=== PATIENT | female | born 1995 | race Hispanic/Latino ===

== ENCOUNTER 2019-04-16 19:58 | Emergency (ER) | payer BC ==
--- NOTE | 2019-04-16 20:20 | EDM.PDOC ---
ED HPI GENERAL MEDICAL PROBLEM - General Chief Complaint: Genitourinary Problem Stated Complaint: POSSIBLE BLADDER INFECTION Time Seen by Provider: 04/16/19 20:11 - History of Present Illness INITIAL COMMENTS - FREE TEXT/NARRATIVE: HISTORY AND PHYSICAL: History of present illness: Patient is a healthy 23-year-old female who is 16 weeks and presents with urinary frequency urgency small volumes and dysuria but no hematuria. She says the symptoms started recently and she has not had any vaginal bleeding. She has no abdominal pain and no flank pain no vomiting no fevers and no diarrhea. She says that she has been feeling the baby move and she is not concerned about her . She is following with [facility] and Dr. Doll. She did not inform the clinic that she was having these issues. She is pushing hydration and has no chest pain or shortness of breath and is eating normally. Review of systems: As per history of present illness and below otherwise all systems reviewed and negative. Past medical history: As per history of present illness and as reviewed below otherwise noncontributory. Surgical history: As per history of present illness and as reviewed below otherwise noncontributory. Social history: No reported history of drug or alcohol abuse. Family history: As per history of present illness and as reviewed below otherwise noncontributory. Physical exam: General: Well-developed well-nourished female who is nontoxic and vital signs are noted by me HEENT: Atraumatic, normocephalic, pupils reactive, negative for conjunctival pallor or scleral icterus, mucous membranes moist, throat clear, neck supple, nontender, trachea midline. Lungs: Clear to auscultation, breath sounds equal bilaterally, chest nontender. Heart: S1S2, regular, rate and rhythm no overt murmurs Abdomen: Soft, nondistended, nontender. Uterus is gravid with the fundus below the umbilicus without tenderness negative for masses or hepatosplenomegaly. Negative for costovertebral tenderness. Pelvis: Stable nontender. Genitourinary: Deferred. Rectal: Deferred. Extremities: Atraumatic, negative for cords or calf pain. Neurovascular unremarkable. Neuro: Awake, alert, oriented. Cranial nerves II through XII unremarkable. Cerebellum unremarkable. Motor and sensory unremarkable throughout. Exam nonfocal. Diagnostics: UA with reflex, wet prep for trichomoniasis/BV/comfort Therapeutics: [] 2048: Case was discussed with Dr. Melgar; she would not like to give the patient Pyridium if the UA is negative and she is aware that a urine culture will be sent. She would like us to swab the patient for bacterial vaginosis and I will send that test off with the patient self swabbing. Patient and at bedside are aware of this Patient is aware of testing results and that at this point I do not have anything treatable for her symptoms and she like to follow-up with her provider in the clinic. I have advised her to continue to monitor what she is feeling push hydration and reasons to return to the ED Impression: Dysuria stable Second trimester stable Definitive disposition and diagnosis as appropriate pending reevaluation and review of above. Vaginal Pain Score (Numeric/FACES): 2 - Related Data Allergies Allergy/AdvReac Type Severity Reaction Status Date / Time ibuprofen Allergy Hives Verified 04/16/19 20:07 Penicillins Allergy Hives Verified 04/16/19 20:07 Home Meds: Home Meds Pnv No.95/Ferrous Fum/Folic AC [ Multivitamin Tablet] 1 tab PO DAILY [History] hydrOXYzine pamoate [Vistaril] 50 mg PO BEDTIME 04/16/19 [History] Social & Family History - Tobacco Use Smoking Status *Q: Never Smoker Second Hand Smoke Exposure: No - Caffeine Use Caffeine Use: Reports: None - Recreational Drug Use Recreational Drug Use: No ED ROS GENERAL - Review of Systems Review Of Systems: Comprehensive ROS is negative, except as noted in HPI. ED EXAM, GENERAL - Physical Exam Exam: See Below (See dictation) Course - Vital Signs Last Recorded V/S: Last Vital Signs Temp 37.1 C 04/16/19 19:59 Pulse 82 04/16/19 19:59 Resp 14 04/16/19 19:59 BP 115/76 04/16/19 19:59 Pulse Ox 98 04/16/19 19:59 - Orders/Labs/Meds Orders: Active Orders 24 hr Category Date Time Status CULTURE URINE [RM] Stat Lab 04/16/19 20:05 Received Labs: Laboratory Tests 04/16/19 04/16/19 Range/Units 20:05 21:00 Urine Color YELLOW Urine Appearance SLT CLOUDY Urine pH 7.0 (5.0-8.0) Ur Specific [place] 1.010 (1.001-1.035) Urine Protein NEGATIVE (NEGATIVE) mg/dL Urine Glucose (UA) NEGATIVE (NEGATIVE) mg/dL Urine Ketones NEGATIVE (NEGATIVE) mg/dL Urine Occult Blood NEGATIVE (NEGATIVE) Urine Nitrite NEGATIVE (NEGATIVE) Urine Bilirubin NEGATIVE (NEGATIVE) Urine Urobilinogen 0.2 (<2.0) EU/dL Ur Leukocyte Esterase TRACE H (NEGATIVE) Urine RBC 0-1 (0-2/HPF) Urine WBC 0-1 (0-5/HPF) Ur Epithelial Cells FEW (NONE-FEW) Urine Bacteria RARE (NEGATIVE) Comfort species DNA NEGATIVE (NEGATIVE) Gardnerella DNA Probe NEGATIVE (NEGATIVE) Trichomonas DNA Probe NEGATIVE (NEGATIVE) Departure - Departure Time of Disposition: 21:51 Disposition: Home, Self-Care 01 Condition: Good Clinical Impression: Second trimester , Dysuria - Discharge Information Referrals: PCP,None [Primary Care Provider] - Forms: ED Department Discharge Additional Instructions: The following information is given to patients seen in the emergency department who are being discharged to home. This information is to outline your options for follow-up care. We provide all patients seen in our emergency department with a follow-up referral. The need for follow-up, as well as the timing and circumstances, are variable depending upon the specifics of your emergency department visit. If you don't have a primary care physician on staff, we will provide you with a referral. We always advise you to contact your personal physician following an emergency department visit to inform them of the circumstance of the visit and for follow-up with them and/or the need for any referrals to a consulting specialist. The emergency department will also refer you to a specialist when appropriate. This referral assures that you have the opportunity for followup care with a specialist. All of these measure are taken in an effort to provide you with optimal care, which includes your followup. Under all circumstances we always encourage you to contact your private physician who remains a resource for coordinating your care. When calling for followup care, please make the office aware that this follow-up is from your recent emergency room visit. If for any reason you are refused follow-up, please contact the [facility] emergency department at and ask to speak to the emergency department charge nurse. [facility] [place] [phone] Push hydration and call and inform your provider on Friday morning of today's ER visit and schedule follow-up. Sepsis Event Note - Evaluation Sepsis Screening Result: No Definite Risk - Focused Exam Vital Signs: Vital Signs Temp Pulse Resp BP Pulse Ox 04/16/19 19:59 37.1 C 82 14 115/76 98 Date Exam was Performed: 04/16/19 Time Exam was Performed: 21:51 - My Orders Last 24 Hours: My Active Orders 04/16/19 20:05 CULTURE URINE [RM] Stat - Assessment/Plan Last 24 Hours: My Active Orders 04/16/19 20:05 CULTURE URINE [RM] Stat
== END 2019-04-16 22:07 | disposition home or self-care (01) ==
LOC: MW.ED 19:58
DX: O99.89 Other specified diseases and conditions complicating pregnancy, childbirth and the puerperium (principal); R30.0 Dysuria; Z3A.16 16 weeks gestation of pregnancy; Z88.0 Allergy status to penicillin; Z88.6 Allergy status to analgesic agent
CPT/HCPCS: 81001; 87086; 87480; 87510; 87660; 99283

== ENCOUNTER 2019-09-10 02:58 | Inpatient (IN) | payer MEDICAID ==
[2019-09-10] MEDS ORDERED: Misoprostol 25 MCG (1/4 of 100 MCG) Tab VAG PRN (03:06)
[2019-09-10] MEDS ORDERED: Terbutaline 1 MG/ML SDV SUBCUT PRN (03:06)
[2019-09-10] MEDS ORDERED: Misoprostol 200 MCG Tab PO PRN (03:11)
[2019-09-10] MEDS ORDERED: Methylergonovine 0.2 MG/1 ML Amp IM PRN (03:11)
[2019-09-10] MEDS ORDERED: Sodium Chloride 0.9% 10 ML SDV IV PRN (03:11)
[2019-09-10] MEDS ORDERED: Butorphanol 1 MG/ML SDV IVPUSH PRN (03:11)
[2019-09-10] MEDS ORDERED: Tranexamic Acid 1,000 MG in Sodium Chloride 0.9% 100 ML IV PRN (03:11)
[2019-09-10] MEDS ORDERED: Water For Irrigation,Sterile 1,000 ML Container IRR PRN (03:11)
[2019-09-10] MEDS ORDERED: Sodium Chloride 0.9% 10 ML Syringe FLUSH PRN (03:11)
[2019-09-10] MEDS ORDERED: Carboprost Tromethamine 250 MCG/1 ML Amp IM PRN (03:11)
[2019-09-10] MEDS ORDERED: Nalbuphine 10 MG/1 ML Vial IVPUSH PRN (03:11)
[2019-09-10] MEDS ORDERED: Sodium Chloride 0.9% 2.5 ML Syringe FLUSH PRN (03:11)
[2019-09-10] MEDS ORDERED: Lidocaine 1% 50 ML MDV INJECT PRN (03:11)
[2019-09-10] MEDS ORDERED: Oxytocin/0.9 % Sodium Chloride 30 UNIT/500 ML BAG IV SCH ×2 (03:15)
[2019-09-10] MEDS ORDERED: Lactated Ringers 1,000 ML IV SCH (03:15)
[2019-09-10] MEDS: Misoprostol 25 MCG (1/4 of 100 MCG) Tab VAG PRN ×2 (04:41→08:30)
[2019-09-10] MEDS ORDERED: Witch Hazel Medicated Pads 40/Jar TOP PRN (13:08)
[2019-09-10] MEDS ORDERED: Acetaminophen 500 MG Tab PO PRN (13:08)
[2019-09-10] MEDS ORDERED: Docusate Sodium 100 MG Cap PO PRN (13:08)
[2019-09-10] MEDS ORDERED: Ibuprofen 400 MG Tab PO PRN (13:08)
[2019-09-10] MEDS ORDERED: Benzocaine/Menthol 20%-0.5% Spray 78 GM Cannister TOP PRN (13:08)
[2019-09-10] MEDS ORDERED: Bisacodyl 10 MG Supp RECTAL PRN (13:08)
[2019-09-10] MEDS ORDERED: Lanolin 100% Cream 7 GM Tube TOP PRN (13:08)
[2019-09-10] MEDS: Acetaminophen 500 MG Tab PO PRN (17:44)
--- NOTE | 2019-09-10 17:55 | OR ---
SURGEON: Luis Doll MD DATE OF PROCEDURE: 09/10/2019 INDICATION FOR PROCEDURE: A 24-year-old, G7, P 1-1-4-2, at 37 weeks and 0 days presenting for of labor for preeclampsia without severe features. The patient noted to have mildly elevated blood pressures in the office, 130s over 90s, with elevated protein-creatinine ratio of 0.3. She was asymptomatic and had normal lab. Discussed options for induction of labor due to preeclampsia or close monitoring with two times weekly NST and BPP. The patient desires for induction of labor. Is aware of slightly increased risk of respiratory distress at early term. The patient received two doses of Cytotec and began to have regular contractions. She progressed quickly to fully dilated and +1 station with bulging membranes. Category 1 tracing. She was GBS unknown and did not receive antibiotics for prophylaxis. She had AROM with clear fluid. She also had small amount of dark vaginal bleeding with clots. She then started feeling pressure and began pushing with contractions. PREOPERATIVE DIAGNOSES: 1. Rose intrauterine at 37 weeks and 0 days. 2. Preeclampsia without severe features. 3. Marginal placental abruption. POSTOPERATIVE DIAGNOSES: 1. Rose intrauterine at 37 weeks and 0 days. 2. Preeclampsia without severe features. 3. Marginal placental abruption. PROCEDURE PERFORMED: Normal spontaneous vaginal delivery. ANESTHESIA: None. FINDINGS: Viable male infant. scores were pending. Weight is pending. The baby had O2 saturations in the 60s initially after delivery and was given respiratory support and was stable on room air shortly after delivery. DESCRIPTION OF PROCEDURE: The patient pushed with contractions for approximately 5 minutes. The head quickly delivered over intact perineum, restituted ROT. Anterior shoulder delivered easily followed by posterior shoulder and remaining body. No nuchal cord was noted. The baby was placed on maternal chest and evaluated by awaiting nursery staff. The baby was slightly pale, but pink, and moving all extremities and crying. The umbilical cord was clamped and cut after 60 seconds and no longer pulsating. The umbilical cord gases were obtained. The placenta was removed with gentle traction on the umbilical cord. The perineum was examined and no lacerations were noted. Fundal massage was performed. The fundus was firm at the umbilicus and the bleeding was light. The patient tolerated the procedure well, was given care instructions. MEHNAZ JACOBO /[id number]
[2019-09-11] MEDS: Acetaminophen 500 MG Tab PO PRN ×2 (00:06→05:26)
--- NOTE | 2019-09-11 06:31 | PCM.PNPP ---
- General Info Date of Service: 09/11/19 Functional Status: Reports: Pain Controlled, Tolerating Diet, Ambulating, Urinating - Review of Systems General: Reports: Fatigue. Denies: Fever, Weakness Pulmonary: Denies: Shortness of Breath Cardiovascular: Denies: Chest Pain, Palpitations, Lightheadedness Gastrointestinal: Denies: Abdominal Pain, Nausea, Vomiting Genitourinary: Denies: Flank Pain Musculoskeletal: Reports: No Symptoms Skin: Reports: No Symptoms Neurological: Reports: No Symptoms Psychiatric: Reports: No Symptoms - General Info Date of Service: 09/11/19 - Patient Data Vital Signs - Most Recent: Last Vital Signs Temp 36.6 C 09/11/19 04:34 Pulse 66 09/11/19 04:34 Resp 16 09/11/19 04:34 BP 129/73 09/11/19 04:34 Pulse Ox 97 09/11/19 04:34 Weight - Most Recent: 72.575 kg I&O - Last 24 Hours: Intake & Output 09/10/19 09/10/19 09/11/19 14:59 22:59 06:59 Intake Total 1000 Balance 1000 Med Orders - Current: Current Medications Acetaminophen (Tylenol Extra Strength) 500 mg PO Q4H PRN PRN Reason: Pain Acetaminophen (Tylenol Extra Strength) 1,000 mg PO Q4H PRN PRN Reason: Pain Last Admin: 09/11/19 05:26 Dose: 1,000 mg Documented by: Benzocaine/Menthol (Dermoplast Pain Relief 20%-0.5% [place]) 78 gm TOP ASDIRECTED PRN PRN Reason: Perineal Comfort Measure Bisacodyl (Dulcolax) 10 mg RECTAL ONETIME PRN PRN Reason: Constipation Butorphanol Tartrate (Stadol) 1 mg IVPUSH Q1H PRN PRN Reason: Pain Carboprost Tromethamine (Hemabate Ds) 250 mcg IM ASDIRECTED PRN PRN Reason: Post Hemorrhage Docusate Sodium (Colace) 100 mg PO BID PRN PRN Reason: Constipation Emollient Ointment (Lansinoh Hpa) 0 gm TOP ASDIRECTED PRN PRN Reason: Sore Nipples Oxytocin/Sodium Chloride (Oxytocin 30 Unit/500 Ml-Ns) 30 unit in 500 mls @ 2 mls/hr IV TITRATE CLAUDIA; Protocol Lactated Ringer's (Ringers, Lactated) 1,000 mls @ 150 mls/hr IV ASDIRECTED [facility] Last Admin: 09/10/19 09:25 Dose: 150 mls/hr Documented by: Oxytocin/Sodium Chloride (Oxytocin 30 Unit/500 Ml-Ns) 30 unit in 500 mls @ 500 mls/hr IV TITRATE [facility] Last Admin: 09/10/19 12:34 Dose: 500 mls/hr Documented by: Tranexamic Acid 1,000 mg/ (Sodium Chloride) 110 mls @ 660 mls/hr IV ONETIME PRN PRN Reason: Bleeding Ibuprofen (Motrin) 400 mg PO Q4H PRN PRN Reason: Pain Lidocaine HCl (Xylocaine 1%) 50 ml INJECT ONETIME PRN PRN Reason: Laceration repair Methylergonovine Maleate (Methergine) 0.2 mg IM ASDIRECTED PRN PRN Reason: Post Hemorrhage Misoprostol (Cytotec) 25 mcg VAG ONETIME PRN PRN Reason: Cervical Ripening Misoprostol (Cytotec) 25 mcg VAG Q4H PRN PRN Reason: Cervical Ripening Last Admin: 09/10/19 08:30 Dose: 25 mcg Documented by: Misoprostol (Cytotec) 200 mcg PO ONETIME PRN PRN Reason: Post Hemorrhage Nalbuphine HCl (Nubain) 10 mg IVPUSH Q1H PRN PRN Reason: Pain (severe 7-10) Sodium Chloride (Saline Flush) 10 ml FLUSH ASDIRECTED PRN PRN Reason: Keep Vein Open Last Admin: 09/10/19 07:12 Dose: 10 ml Documented by: Sodium Chloride (Saline Flush) 2.5 ml FLUSH ASDIRECTED PRN PRN Reason: Keep Vein Open Sodium Chloride (Normal Saline) 10 ml IV ASDIRECTED PRN PRN Reason: IV Use Sterile Water (Sterile Water For Irrigation) 1,000 ml IRR ASDIRECTED PRN PRN Reason: delivery Last Admin: 09/10/19 12:30 Dose: 1,000 ml Documented by: Terbutaline Sulfate (Brethine) 0.25 mg SUBCUT ASDIRECTED PRN PRN Reason: Tacysystole Witch Margarita (Tucks) 1 pad TOP ASDIRECTED PRN PRN Reason: comfort care - Interaction Support Person: - Recovery Exam Fundal Tone: Firm Fundal Level: At Umbilicus Fundal Placement: Midline Lochia Amount: Small Lochia Color: Rubra/Red Perineum Description: Intact, Minimal Bruising/Swelling Episiotomy/Laceration: None Bladder Status: Voiding Urinary Elimination: Voided - Exam General: Alert, Oriented Lungs: Normal Respiratory Effort Cardiovascular: Regular Rate, Regular Rhythm GI/Abdominal Exam: Normal Bowel Sounds, Soft Extremities: Pedal Edema (trace). No: Marlene's Sign Skin: Warm, Dry, Intact Neurological: No New Focal Deficit Psy/Mental Status: Alert, Normal Affect, Normal Mood - Problem List & Annotations (1) Vaginal delivery SNOMED Code(s): 870079883 Code(s): O80 - ENCOUNTER FOR FULL-TERM UNCOMPLICATED DELIVERY Status: Acute Current Visit: Yes - Problem List Review Problem List Initiated/Reviewed/Updated: Yes - Assessment Assessment:: PPD 1 status post Gestational hypertension, BPs have been normal - Plan Plan:: Await results of am labs. VS are reassuring with normal BPs. IF labs remain stable and BPs normal range--pateint would like to go home later today. She will get a BP cuff and monitor at home. Will call if >140/90. Discharge instructions reviewed. Follow up at [facility] 1 week for BP check and 6 weeks for PP visit.
[2019-09-11 07:07] LABS: BLOOD UREA NITROGEN,BUN 5 mg/dL (7.0-18.0); CARBON DIOXIDE,CO2 22.9 mmol/L (21.0-32.0); CHLORIDE,CL 105 mmol/L (98-107); GLUCOSE RANDOM 96 mg/dL (74-106); POTASSIUM,K 3.8 mmol/L (3.5-5.1); SODIUM,NA 138 mmol/L (136-145)
--- NOTE | 2019-09-12 11:04 | PCM.PNPP ---
- General Info Date of Service: 09/12/19 Functional Status: Reports: Pain Controlled, Tolerating Diet, Ambulating, Urinating - Review of Systems General: Reports: Fatigue. Denies: Fever, Weakness Pulmonary: Denies: Shortness of Breath Cardiovascular: Denies: Chest Pain, Palpitations, Lightheadedness Gastrointestinal: Denies: Abdominal Pain, Nausea, Vomiting Genitourinary: Denies: Flank Pain Musculoskeletal: Reports: No Symptoms Skin: Reports: No Symptoms Neurological: Reports: No Symptoms Psychiatric: Reports: No Symptoms - Patient Data Vital Signs - Most Recent: Last Vital Signs Temp 36.6 C 09/12/19 07:07 Pulse 66 09/12/19 05:00 Resp 15 09/12/19 07:07 BP 109/64 09/12/19 07:07 Pulse Ox 97 09/12/19 07:07 Weight - Most Recent: 72.575 kg Med Orders - Current: Current Medications Acetaminophen (Tylenol Extra Strength) 500 mg PO Q4H PRN PRN Reason: Pain Acetaminophen (Tylenol Extra Strength) 1,000 mg PO Q4H PRN PRN Reason: Pain Last Admin: 09/11/19 05:26 Dose: 1,000 mg Documented by: Benzocaine/Menthol (Dermoplast Pain Relief 20%-0.5% [place]) 78 gm TOP ASDIRECTED PRN PRN Reason: Perineal Comfort Measure Bisacodyl (Dulcolax) 10 mg RECTAL ONETIME PRN PRN Reason: Constipation Butorphanol Tartrate (Stadol) 1 mg IVPUSH Q1H PRN PRN Reason: Pain Carboprost Tromethamine (Hemabate Ds) 250 mcg IM ASDIRECTED PRN PRN Reason: Post Hemorrhage Docusate Sodium (Colace) 100 mg PO BID PRN PRN Reason: Constipation Emollient Ointment (Lansinoh Hpa) 0 gm TOP ASDIRECTED PRN PRN Reason: Sore Nipples Oxytocin/Sodium Chloride (Oxytocin 30 Unit/500 Ml-Ns) 30 unit in 500 mls @ 2 mls/hr IV TITRATE CLAUDIA; Protocol Lactated Ringer's (Ringers, Lactated) 1,000 mls @ 150 mls/hr IV ASDIRECTED CLAUDIA Last Admin: 09/10/19 09:25 Dose: 150 mls/hr Documented by: Oxytocin/Sodium Chloride (Oxytocin 30 Unit/500 Ml-Ns) 30 unit in 500 mls @ 500 mls/hr IV TITRATE CLAUDIA Last Admin: 09/10/19 12:34 Dose: 500 mls/hr Documented by: Tranexamic Acid 1,000 mg/ (Sodium Chloride) 110 mls @ 660 mls/hr IV ONETIME PRN PRN Reason: Bleeding Ibuprofen (Motrin) 400 mg PO Q4H PRN PRN Reason: Pain Lidocaine HCl (Xylocaine 1%) 50 ml INJECT ONETIME PRN PRN Reason: Laceration repair Methylergonovine Maleate (Methergine) 0.2 mg IM ASDIRECTED PRN PRN Reason: Post Hemorrhage Misoprostol (Cytotec) 25 mcg VAG ONETIME PRN PRN Reason: Cervical Ripening Misoprostol (Cytotec) 25 mcg VAG Q4H PRN PRN Reason: Cervical Ripening Last Admin: 09/10/19 08:30 Dose: 25 mcg Documented by: Misoprostol (Cytotec) 200 mcg PO ONETIME PRN PRN Reason: Post Hemorrhage Nalbuphine HCl (Nubain) 10 mg IVPUSH Q1H PRN PRN Reason: Pain (severe 7-10) Sodium Chloride (Saline Flush) 10 ml FLUSH ASDIRECTED PRN PRN Reason: Keep Vein Open Last Admin: 09/10/19 07:12 Dose: 10 ml Documented by: Sodium Chloride (Saline Flush) 2.5 ml FLUSH ASDIRECTED PRN PRN Reason: Keep Vein Open Sodium Chloride (Normal Saline) 10 ml IV ASDIRECTED PRN PRN Reason: IV Use Sterile Water (Sterile Water For Irrigation) 1,000 ml IRR ASDIRECTED PRN PRN Reason: delivery Last Admin: 09/10/19 12:30 Dose: 1,000 ml Documented by: Terbutaline Sulfate (Brethine) 0.25 mg SUBCUT ASDIRECTED PRN PRN Reason: Tacysystole Witch Margarita (Tucks) 1 pad TOP ASDIRECTED PRN PRN Reason: comfort care - Infant Interaction Support Person: - Recovery Exam Fundal Tone: Firm Fundal Level: 2 Fingerbreadths Below Umbilicus Fundal Placement: Midline Lochia Amount: Scant Lochia Color: Rubra/Red Perineum Description: Intact, Minimal Bruising/Swelling Episiotomy/Laceration: None Bladder Status: Voiding Urinary Elimination: Voided Other Urinary Elimination, : ready to void - Exam General: Alert, Oriented Lungs: Normal Respiratory Effort Cardiovascular: Regular Rate, Regular Rhythm GI/Abdominal Exam: Normal Bowel Sounds, Soft Extremities: Pedal Edema (trace). No: Marlene's Sign Skin: Warm, Dry, Intact Neurological: No New Focal Deficit Psy/Mental Status: Alert, Normal Affect, Normal Mood - Problem List & Annotations (1) Vaginal delivery SNOMED Code(s): 796551983 Code(s): O80 - ENCOUNTER FOR FULL-TERM UNCOMPLICATED DELIVERY Status: Acute Current Visit: Yes - Problem List Review Problem List Initiated/Reviewed/Updated: Yes - Assessment Assessment:: PPD 2 status post Gestational hypertension, BPs have been normal - Plan Plan:: VS are reassuring with normal BPs. Stayed another day due to GBBS unknown status for . She will get a BP cuff and monitor at home. Will call if >140/90. Discharge instructions reviewed. Follow up at [facility] 1 week for BP check and 6 weeks for PP visit.
== END 2019-09-12 11:23 | disposition home or self-care (01) | DRG 807 ==
LOC: MW.OBCHECK 02:58 → MW.OB 03:01 → MW.OBCHECK 03:11 → MW.OB 03:11 → OBSVTOIN 13:08 → MW.OB 15:35
PROVIDERS: ADMIT Obstetrics & Gynecology; ATTEND Obstetrics & Gynecology
PROC: 10E0XZZ Delivery of Products of Conception, External Approach (ICD-10-PCS; principal; 2019-09-10)
PROC: 10907ZC Drainage of Amniotic Fluid, Therapeutic from Products of Conception, Via Natural or Artificial Opening (ICD-10-PCS; 2019-09-10)
PROC: 3E0P7VZ Introduction of Hormone into Female Reproductive, Via Natural or Artificial Opening (ICD-10-PCS; 2019-09-10)
DX: O14.04 Mild to moderate pre-eclampsia, complicating childbirth (principal); Z37.0 Single live birth; Z3A.37 37 weeks gestation of pregnancy; O45.93 Premature separation of placenta, unspecified, third trimester
CPT/HCPCS: 36415; 59025; 59409; 80053; 81003; 84550; 85025; 85027; 86592; 86593; 86850; 86900; 86901; A9270-GY; J2590; J7120; U0002